=== PATIENT | female | born 1990 | race Caucasian/White ===

== ENCOUNTER 2024-11-18 13:34 | Emergency (ER) | payer OTHER ==
[~2024-11-18] VITALS: Ht 162.6 cm; Wt 121.5 kg
[2024-11-18] MEDS ORDERED: ACET-907 PO (13:48)
[2024-11-18] MEDS ORDERED: IBUP200C33 PO (13:48)
[2024-11-18] MEDS ORDERED: METO37.5 PO (13:48)
[2024-11-18] MEDS ORDERED: AMOX500C PO (18:30)
[2024-11-18] MEDS ORDERED: IBUP-1022 PO (18:30)
[2024-11-18 18:36] VITALS: BP 165/74; TEMP 97.2; O2SAT 97
== END 2024-11-18 18:37 | disposition home or self-care (01) ==
LOC: M ED 13:34
DX: K04.7 Periapical abscess without sinus (principal); I10 Essential (primary) hypertension; F17.200 Nicotine dependence, unspecified, uncomplicated